=== PATIENT | male | born 2000 | race Caucasian/White ===

== ENCOUNTER 2019-05-27 16:03 | Emergency (ER) | payer MEDICAID, OTHER ==
[2019-05-27] MEDS: SODIUM CHLORIDE 0.9% 1L IRRIG IRR (16:31)
[2019-05-27] MEDS: LIDOCAINE 2%/EPI MPF (SDV) 20 ML VIAL INJ (16:31)
[2019-05-27] MEDS: DIPHTH/TET/ACEL PERTUSS (ADULT) 0.5 ML VIAL IM* (16:32)
== END 2019-05-27 17:32 | disposition home or self-care (01) ==
LOC: E/R 16:03
DX: S51.811A Laceration without foreign body of right forearm, initial encounter (principal); W26.0XXA Contact with knife, initial encounter; Y92.9 Unspecified place or not applicable; Z23 Encounter for immunization
CPT/HCPCS: 12004; 90471; 90715; 99283-25